=== PATIENT | male | born 1970 | race Caucasian/White ===

== ENCOUNTER 2023-11-22 11:51 | Outpatient (AMB) | payer OTHER, SELFPAY ==
[2023-11-22 11:59] VITALS: BP 120/72; PULSE 75; TEMP 36.2; O2SAT 96; BMI 38.8
--- NOTE | 2023-11-22 11:59 | AM.OFFWIN_ITS ---
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 Pt has been seen and evaluated by [facility]. U/S of both knees and Xray negative. Reports that pain on the back of both knees, worse with walking. He is also taking Prednisone and Oxycodone with no relief. He is currently seeing [facility] Social History Patient Tobacco Use Status: Never used Tobacco Review of Systems Const All systems reviewed & are unremarkable except as noted in HPI and below Physical Exam Vital Signs: Last Vital Signs Temp 97.2 F 11/22/23 11:59 Pulse 75 11/22/23 11:59 BP 120/72 11/22/23 11:59 Pulse Ox 96 11/22/23 11:59 Oxygen Delivery Method Room Air 11/22/23 11:59 BMI result Body Mass Index 38.8 Const General: comfortable and no acute distress Nutritional Appearance: obese Orientation/consciousness: patient oriented x3 Neuro General: patient oriented x3, gait normal (walk with a slight limp) and moves all extremities Extrem Right lower extremity: normal to inspection and knee Details: swelling and abnormal ROM (due to pain); no edema Left lower extremity: knee Details: tenderness, swelling and abnormal ROM (due to pain) Psych Speech and movement: Normal speech and movement present Assessment & Plan Assessment & Plan (1) Knee pain, bilateral: Code(s): M25.561 - Pain in right knee; M25.562 - Pain in left knee Qualifiers: Chronicity: chronic Qualified Code(s): M25.561 - Pain in right knee; M25.562 - Pain in left knee; G89.29 - Other chronic pain Plan: - PT referral placed today. - Continue with Chiro - Acetaminophen for pain relief Orders: Orders PT Evaluation and Treatment Today G89.29 - Other chronic pain, M25.561 - Pain in right knee, M25.562 - Pain in left knee Medications: New metaxalone 800 mg PO TID 30 tabs 0RF G89.29 - Other chronic pain, M25.561 - Pain in right knee, M25.562 - Pain in left knee meloxicam 15 mg PO DAILY 60 tabs 0RF G89.29 - Other chronic pain, M25.561 - Pain in right knee, M25.562 - Pain in left knee Coding Level of Care Code New Pt Level 3 (00160) Diagnoses Chronic pain of both knees M25.561; M25.562; G89.29 Chronicity: chronic Time Spent (min) 15
== END 2023-11-22 13:07 | disposition home or self-care (01) ==
PROVIDERS: Visit Provider Nurse Practitioner Family
DX: M25.561 Pain in right knee (principal); M25.562 Pain in left knee; G89.29 Other chronic pain
CPT/HCPCS: 99203

== ENCOUNTER 2023-11-23 13:11 | Emergency (ER) | payer OTHER, SELFPAY ==
--- NOTE | ~2023-11-23 | XR_ITS ---
EXAMINATION: XR KNEE, RIGHT CLINICAL INFORMATION: Injury. Pain. COMPARISON: None available. TECHNIQUE: Four views of the right knee. FINDINGS: No fracture or dislocation. There may be a very small joint effusion. Mild degenerative disease of the patellofemoral joint. Regional soft tissue is normal in appearance. XR/XR knee RT 3V IMPRESSION: No fracture or dislocation. Possible very small suprapatellar joint effusion.
[2023-11-23 14:26] VITALS: BP 124/79; PULSE 77; RESP 16; TEMP 36.6; O2SAT 100; BMI 37.6
--- NOTE | 2023-11-23 14:26 | ED_ITS ---
HPI - General Adult General Chief complaint: Extremity Injury, Lower Stated complaint: something popped in knee Time Seen by Provider: 11/23/23 14:46 Source: patient Mode of arrival: ambulatory Limitations: no limitations History of Present Illness HPI narrative: 53-year-old male with history of bilateral chronic knee pain presents to ED for right knee pain. Patient states he was taking a step and felt the pop in his posterior right knee. Patient denies any blunt trauma, swelling, calf pain, disclocration, fever, fall, or chills. Related Data Previous Rx's ?Medication ?Instructions ?Recorded meloxicam 15 mg tablet 15 mg PO DAILY #60 tabs 11/22/23 metaxalone 800 mg tablet 800 mg PO TID #30 tabs 11/22/23 tramadol 50 mg tablet 50 mg PO QID PRN pain 3 days #12 11/23/23 tabs Allergies Allergy/AdvReac Type Severity Reaction Status Date / Time No Known Allergies Allergy Verified 11/23/23 14:28 Review of Systems 2 Review of Systems: Right knee pain Yes all other systems are reviewed and are negative [facility] Social History Social History Patient Tobacco Use Status: Never used Tobacco Smoked in Last 30 Days: No Use of substances other than those prescribed or required for medical reasons: No Advance Directives: No Advance Directives Information Provided: No Physical Exam ED Vital Signs: Vital Signs - 24 hr 11/23/23 14:26 Temperature 97.9 F Pulse Rate 77 Respiratory Rate 16 Blood Pressure 124/79 Pulse Oximetry 100 Oxygen Delivery Method Room Air BMI result Body Mass Index 37.6 Const Orientation/consciousness: oriented to person, oriented to place, oriented to time and patient oriented x3 HENMT Head: Yes normal to inspection, Yes No palpable skull fracture present, Yes normocephalic and Yes atraumatic Eyes General: appearance normal, both eyes and all related structures Neck Neck: Yes normal visual inspection, Yes full ROM, Yes no lymphadenopathy, Yes no meningeal signs, Yes trachea midline, Yes supple, No anterior neck swelling and No tender Chest Chest palpation & inspection: normal inspection of the chest and normal palpation of entire chest wall Resp Effort & Inspection: normal respiratory effort and able to speak in complete sentences Auscultation: clear to auscultation bilaterally Cardio Jugular venous distension: no JVD Heart sounds: S1 normal heart sound present and S2 normal heart sound present GI Inspection: Yes normal to inspection Palpation (GI): Soft to palpation, not firm, nontender, no guarding and not rigid General: Yes no CVA tenderness Back/Spine/Pelvis Back: no CVA tenderness and No back tenderness Skin General skin exam: no rashes or lesions noted, elasticity normal and turgor normal Neuro General: oriented to person, oriented to place, oriented to time, patient oriented x3, gait normal, tone normal, moves all extremities, Normal light touch and pain sensation, no meningeal signs, no focal motor deficits, CN's II-XI intact bilaterally and normal sensation to monofilament Extrem General: Yes normal to inspection and Yes full ROM Knee images: 2 1. positive for tenderness on palpation and on range of motion. Negative for stiffness. Negative for erythema, crepitus, or ecchymosis. Rest of extremity normal. Motor/neuro/ vascular exam intact. Negative for any calf pain. Negative for any signs of Achilles tendon injury. 2. positive for tenderness on palpation and on range of motion. Negative for stiffness. Negative for erythema, crepitus, or ecchymosis. Negative for any calf pain. Negative for any signs of Achilles tendon injury. 3. positive for tenderness on palpation and on range of motion. Negative for stiffness. Negative for erythema, crepitus, or ecchymosis. Negative for any calf pain. Negative for any signs of Achilles tendon injury. Psych Appearance: grossly normal, well kempt and not disheveled Course Course Course Narrative: RME performed by Dena Gray PA-C. Patient is a 53 year old assigned male at presenting to the emergency department with right knee pain. Detailed physical exam and review of systems are deferred to the heel layer. Imaging ordered. Patient placed back in the waiting room pending room availability and results. Medications Administered Discontinued Medications Generic Name Dose Route Start Last Admin Trade Name Freq PRN Reason Stop Dose Admin Cyclobenzaprine HCl 10 mg 11/23/23 15:32 11/23/23 16:01 Cyclobenzaprine Hcl 10 Mg Tablet PO 11/23/23 15:33 10 mg ONCE ONE Administration Ketorolac Tromethamine 30 mg 11/23/23 15:32 11/23/23 16:00 Ketorolac Tromethamine 30 Mg/Ml Vial IM 11/23/23 15:33 30 mg ONCE ONE Administration Morphine Sulfate 4 mg 11/23/23 16:41 11/23/23 16:56 Morphine Sulfate 4 Mg/Ml Cartridge IM 11/23/23 16:42 4 mg ONCE ONE Administration Protocol Ondansetron HCl 4 mg 11/23/23 15:32 11/23/23 16:01 Ondansetron Odt 4 Mg Tab.Rapdis TRANSLINGU 11/23/23 15:33 4 mg ONCE ONE Administration Oxycodone HCl 5 mg 11/23/23 15:32 11/23/23 16:09 Oxycodone Hcl Immed Release 5 Mg Tablet PO 11/23/23 15:33 Not Given ONCE ONE Medical Decision Making Medical Decision Making MDM Narrative: 53-year-old male with right knee pain after hearing a pop while taking a step. Patient denies any blunt trauma. X-ray ordered. 4:42pm; X-ray shows small amount of suprapatellar joint effusion which indicate most likely a meniscal or ligament tear of the in the knee. Patient was informed of this. Patient placed in knee brace and crutches. Patient explained worrisome signs and informed to return to the ED if he has them. Differential Diagnosis Differential Diagnoses: The differential diagnosis associated with the presentation includes ( Meniscus ligament tear, knee fracture, knee sprain) Admission/Observation Consideration of admission/observation: Escalation of care including admission/observation considered Independent Interpretation I performed an independent interpretation of an: Plain X-Ray Radiology Impression Discussion of test interpretation with radiology: I have reviewed the radiologist's reading. Independent Historian Clinical information obtained from an independent historian. History obtained from or confirmed by: Other (patient) External Record Review External record reviewed: Other (previous visits) Prescription Management I considered prescription management with: Pain Medication Discharge Plan Discharge Clinical Impression: Right knee sprain, Effusion of right knee joint Patient Disposition: Home, Self-Care Instructions: Knee Sprain (ED), Swollen Knee Joint (ED) Additional Instructions: x-ray of right knee shows small joint effusion which may indicate possible meniscus ligament tear in the knee. You were placed in crutches and knee brace. You will need MRI as outpatient by Orthopedic or primary care provider. Return to the ED immediately for any swelling, redness, warmth of knee, fever, chills, bluish discoloration of extremity, or any other concerning symptoms. Continue taking meloxicam and metaxalone as prescribed by your PCP. Prescriptions: New tramadol 50 mg tablet 50 mg PO QID PRN (Reason: pain) 3 Days Qty: 12 0RF Rx Instructions: side effect is drowsiness. Do not take with muscle realxer No Action meloxicam 15 mg tablet 15 mg PO DAILY Qty: 60 0RF metaxalone 800 mg tablet 800 mg PO TID Qty: 30 0RF Referrals: [facility] Orth[facility] Surgeons [Provider Group] ( right knee atraumatic injury heard a pop. X-ray shows fluid. Most likely meniscus versus ligament tear will need MRI.) Stand Alone Forms: Work/School Release Interventions: ED Discharge Assessment Last Done: 11/23/23 17:09 Discharge Date/Time: 11/23/23 17:10 Print Language: Gibraltarian
[2023-11-23] MEDS: Ketorolac Tromethamine 30 MG/ML VIAL IM (16:00)
[2023-11-23] MEDS: Cyclobenzaprine HCl 10 MG TABLET PO (16:01)
[2023-11-23] MEDS: Ondansetron ODT 4 MG TAB.RAPDIS TRANSLINGU (16:01)
[2023-11-23] MEDS: Morphine Sulfate 4 MG/ML CARTRIDGE IM (16:56)
[2023-11-23 17:09] VITALS: BP 100/54; PULSE 60; RESP 18; TEMP 36.6; O2SAT 95
== END 2023-11-23 17:10 | disposition home or self-care (01) ==
PROVIDERS: Emergency Provider Internal Medicine
DX: M25.461 Effusion, right knee (principal); S83.91XA Sprain of unspecified site of right knee, initial encounter; X58.XXXA Exposure to other specified factors, initial encounter; M25.561 Pain in right knee; Y93.9 Activity, unspecified; Y92.9 Unspecified place or not applicable; Y99.9 Unspecified external cause status
CPT/HCPCS: 73562; 96372; 99284; J1885; J2270

== ENCOUNTER 2023-12-13 20:07 | Outpatient (REF) | payer OTHER, SELFPAY ==
--- NOTE | ~2023-12-13 | MR_ITS ---
EXAMINATION: MR KNEE WITHOUT CONTRAST, RIGHT CLINICAL INFORMATION: Right knee pain and swelling following an injury. COMPARISON: Right knee radiographs dated 11/23/2023. TECHNIQUE: MRI of the knee without contrast was performed using routine sequences on a high-field scanner. FINDINGS: MENISCI: Medial Meniscus: Complete oblique radial tear of the posterior horn/root junction located approximately 0.6 cm from the posterior root insertion with mild adjacent soft tissue edema and medial extrusion of the meniscal body. Lateral Meniscus: Intact. LIGAMENTS: Cruciate: Intact. Collateral: Mild edema adjacent to the medial collateral ligament which may be related to a meniscal tear or indicate a grade 1 sprain. Intact fibular collateral ligament. EXTENSOR MECHANISM: Superior and inferior patellar enthesophytes. Intact quadriceps and patellar tendons. Normal patellofemoral alignment. ARTICULAR CARTILAGE/BONE: Patellofemoral Compartment: Minimal lateral patellar facet articular cartilage signal heterogeneity. Central trochlea signal heterogeneity and fissuring. Tiny marginal osteophytes. Medial Compartment: Minimal articular cartilage signal heterogeneity. Mild marrow edema adjacent to the posterior root and meniscal tear. Lateral Compartment: Intact articular cartilage. JOINT FLUID AND BURSAE: Small joint effusion and trace Irizarry's cyst. Fluid/edema extending superior to the Irizarry's cyst within the fascial planes, consistent with leak or rupture. MR/MR knee RT wo con IMPRESSION: 1. Complete oblique radial tear of the medial meniscus posterior horn/root junction located approximately 0.6 cm from the posterior root insertion with mild adjacent soft tissue edema and medial extrusion of the meniscal body. 2. Edema adjacent to the medial collateral ligament which may be related to a meniscal tear or indicate a grade 1 sprain. 3. Minimal patellofemoral and medial compartment arthrosis. Small joint effusion and trace Irizarry's cyst. Fluid/edema extending superior to the Irizarry's cyst within the fascial planes, consistent with leak or rupture.
== END 2023-12-13 20:08 | disposition home or self-care (01) ==
LOC: HO.MRI 20:07
PROVIDERS: Visit Provider Internal Medicine
DX: M25.561 Pain in right knee (principal)
CPT/HCPCS: 73721

== ENCOUNTER 2024-01-08 10:49 | Outpatient (AMB) | payer OTHER, SELFPAY ==
--- NOTE | 2024-01-08 10:56 | MHC.OFFVIS ---
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 Patient reports in the end of 11/23/23 he was seen in [facility] [place] knee pain. He expresses he stepped off of the stairs and felt a tear on the medial side of his right knee immediately after. Walking, going up and down stairs or hill increases his symptoms. [facility] and states is offers him stability. He does take tramadol and meloxicam which gave him mild relief. 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 Physical Exam Vital Signs: BMI result Body Mass Index 36.8 Const Other: Well-nourished well-developed very friendly male awake alert and oriented x3 in no acute distress Extrem Other: Bilateral lower extremity examination shows good capillary refill, no skin lesions noted, normal sensation light touch Right knee examination shows a minimal effusion, minimal crepitus with range of motion, tenderness along his medial joint line, positive Isaak's test, no instability Results Reviewed Results Reviewed: Standing full weight-bearing x-rays of the patient's right knee show minimal joint space narrowing, no acute bony abnormalities MRI of the patient's right knee shows minimal degenerative changes as well as a small tear of the medial meniscus and a grade 1 strain of the medial collateral ligament Assessment & Plan Assessment & Plan (1) Right knee pain: Code(s): M25.561 - Pain in right knee Category: Medical Plan Mr. Zhong presents with pain along the medial aspect of his right knee due to strain of his medial collateral ligament as well as a small tear of his medial meniscus. I had a lengthy discussion with the patient regarding the treatment options. At this point the patient's symptoms are somewhat improved with continued non operative treatments and activity modifications. Thus, we will hold off on surgery for now. I will see him back in 4-6 weeks' time for repeat clinical examination. He will contact me prior to that appointment should his symptoms worsen in any way. Feel free to call me at any time should questions regarding his orthopedic management arise. I spent 20 minutes in reviewing the patient's records and imaging studies, seeing the patient and documenting in the medical record. Coding Level of Care Code New Pt Level 2 (17811) Diagnoses Right knee pain M25.561
[2024-01-08 11:00] VITALS: BMI 36.8
== END 2024-01-08 11:28 | disposition home or self-care (01) ==
PROVIDERS: Visit Provider Orthopaedic Surgery
DX: M25.561 Pain in right knee (principal)
CPT/HCPCS: 99203

== ENCOUNTER → 2024-01-08 10:49 | Outpatient (BNVA) | payer OTHER, SELFPAY | PROVIDERS: Visit Provider Orthopaedic Surgery | DX: M25.561 Pain in right knee (principal) | CPT/HCPCS: 99202 ==

== ENCOUNTER 2024-02-20 07:32 | Outpatient (AMB) | payer OTHER, SELFPAY ==
--- NOTE | 2024-02-20 07:47 | A.OFFVIS_ITS ---
Intake Visit Reasons: OV Right knee sprain/effusion Intake Note: Theron is a 53 year old male who presents for follow-up of his right knee pain. The patient states that his symptoms have gotten somewhat better over the last few weeks. He continues to wear a knee brace to help with stability. He has returned to light exercises such as knee extensions. He was offered a cortisone injection at the [facility] 2 weeks ago. He chose not to have the injection. 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 Zhong presents with right knee pain and mechanical symptoms due to a tear of his medial collateral ligament and medial meniscus. At this point the patient's symptoms seem to be improving with activity modifications. We will hold off on a cortisone injection. Will contact me prior to his follow-up appointment in 2 months should his symptoms worsen in any way. I spent 20 minutes in reviewing the patient's records and imaging studies, seeing the patient and documenting in the medical record. Coding Level of Care Code Est Pt Level 3 (13644) Diagnoses Right knee pain M25.561
== END 2024-02-20 08:01 | disposition home or self-care (01) ==
PROVIDERS: Visit Provider Orthopaedic Surgery
DX: M25.561 Pain in right knee (principal)
CPT/HCPCS: 99213

== ENCOUNTER → 2024-02-20 07:32 | Outpatient (BNVA) | payer OTHER, SELFPAY | PROVIDERS: Visit Provider Orthopaedic Surgery | DX: M25.561 Pain in right knee (principal); S83.411A Sprain of medial collateral ligament of right knee, initial encounter; S83.241A Other tear of medial meniscus, current injury, right knee, initial encounter; X58.XXXA Exposure to other specified factors, initial encounter; Y93.9 Activity, unspecified; Y92.9 Unspecified place or not applicable; Y99.9 Unspecified external cause status | CPT/HCPCS: 99212 ==

== ENCOUNTER 2024-04-24 07:53 | Outpatient (AMB) | payer OTHER, SELFPAY ==
--- NOTE | 2024-04-24 07:57 | MHC.OFFVIS ---
Intake Visit Reasons: OV Right knee sprain/effusion-follow up Intake Note: Mr. Zhong is 54 year old male that presents today for a Right knee sprain/effusion-follow up. Patient reports he is doing better. He mentions when going down the stairs he tends to have some discomfort. 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
--- NOTE | 2024-04-24 08:08 | MHC.OFFVIS ---
Intake Visit Reasons: Right knee discomfort Intake Note: Mr. Zhong is a 54-year-old male who presents with complaints of intermittent discomfort along the medial aspect of his right knee. He denies any locking or giving way. He has been able to play golf with minimal discomfort. He takes meloxicam as needed for his discomfort. 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 Zhong presents with intermittent right knee discomfort due to a healing medial collateral ligament injury as well as a small tear of his medial meniscus. I had a lengthy discussion with the patient regarding the treatment options. At this point the patient's symptoms are tolerable to him. He will continue with his activity modifications. He will follow up with me on an as-needed basis should his symptoms worsen in any way. I spent 22 minutes in reviewing the patient's records and imaging studies, seeing the patient and documenting in the medical record. Coding Level of Care Code Est Pt Level 3 (78894) Complex EM visit Add On G2211 Diagnoses Right knee pain M25.561
== END 2024-04-24 08:07 | disposition home or self-care (01) ==
PROVIDERS: Visit Provider Orthopaedic Surgery
DX: M25.561 Pain in right knee (principal)
CPT/HCPCS: 99213; G2211

== ENCOUNTER → 2024-04-24 07:53 | Outpatient (BNVA) | payer OTHER, SELFPAY | PROVIDERS: Visit Provider Orthopaedic Surgery | DX: M25.561 Pain in right knee (principal) | CPT/HCPCS: 99212 ==